=== PATIENT | female | born 1985 | race African-American/Black ===

== ENCOUNTER 2018-08-30 11:08 | Emergency (ER) | payer MEDICARE, MEDICAID ==
[~2018-08-30] VITALS: Ht 172.7 cm; Wt 64.0 kg
[~2018-08-30 11:08] MED LIST: ALBUTEROL
[2018-08-30 11:17] VITALS: BP 137/68
== END 2018-08-30 18:00 | disposition left against medical advice (07) ==
LOC: ER 12:48
DX: Z53.21 Procedure and treatment not carried out due to patient leaving prior to being seen by health care provider (principal)